=== PATIENT | female | born 1995 | race Caucasian/White ===

== ENCOUNTER → 2017-04-07 | Outpatient (CLI) | payer OTHER ==
[2017-04-07 18:21] LABS: BASO % 1.6 %; BASO ABS # 0.09 K/uL (0-0.2); COMPLETE YES; HEMATOCRIT 41.5 % (37-47); IG% 0.2 %; LYMPH % 42.1 %; LYMPH ABS # 2.39 K/uL (1.2-3.4); MEAN CELL VOLUME 85.9 fL (80-100); MEAN CORPUSCULAR HEMOGLOBIN 29.2 pg (25-34); MEAN PLATELET VOLUME 10.2 fL (7.4-10.4); MONO % 9.7 %; NEUT % 40.4 %; PLATELET COUNT 303 K/uL (130-400); RED BLOOD COUNT 4.83 M/uL (4.2-5.4); WHITE BLOOD COUNT 5.68 K/uL (4.8-10.8)
== END | disposition home or self-care (01) ==
LOC: C.LABMFLN 13:33
PROVIDERS: ATTEND Family Medicine
DX: R30.0 Dysuria (principal); K58.9 Irritable bowel syndrome, unspecified

== ENCOUNTER → 2017-05-13 | Outpatient (CLI) | payer OTHER | END | disposition home or self-care (01) | LOC: C.LABMFLN 15:22 | PROVIDERS: ATTEND Physician Assistant | DX: R19.7 Diarrhea, unspecified (principal) ==

== ENCOUNTER → 2017-05-14 | Outpatient (CLI) | payer OTHER ==
[2017-05-16 17:51] LABS: CRYPTOSPORIDIUM AG TC 37213 NOT DETECTED (NOT DETECTED); O&P GIARDIA AG NOT DETECTED (NOT DETECTED)
== END | disposition home or self-care (01) ==
LOC: C.LABMFLN 08:23
PROVIDERS: ATTEND Physician Assistant
DX: R19.7 Diarrhea, unspecified (principal); K92.1 Melena

== ENCOUNTER 2018-06-27 22:45 | Emergency (ER) | payer OTHER ==
[~2018-06-27] VITALS: Ht 175.3 cm; Wt 65.3 kg
[2018-06-27 22:48] VITALS: TEMP 36.7; Ht 175.3 cm; Wt 65.3 kg
[2018-06-27] MEDS ORDERED: SODIUM CHLORIDE 0.9% 1000ML 1,000 ML IV STA (23:00)
[2018-06-27] MEDS ORDERED: PROMETHAZINE HCL INJ 12.5 MG in SODIUM CHLORIDE 0.9% 50ML 50 ML IV STA (23:00)
[2018-06-27 23:33] LABS: BASO % 0.6 %; BASO ABS # 0.04 K/uL (0-0.2); EOS % 2.6 %; EOS ABS # 0.17 K/uL (0-0.5); HEMATOCRIT 44.4 % (37-47); HEMOGLOBIN 15.2 g/dL (12.0-16.0); IG# 0.01 K/uL (0.00-0.02); LYMPH % 40.3 %; LYMPH ABS # 2.67 K/uL (1.2-3.4); MEAN CELL VOLUME 87.7 fL (80-100); MEAN CORPUSCULAR HGB CONC 34.2 g/dl (32-36); MEAN PLATELET VOLUME 9.7 fL (7.4-10.4); MONO ABS # 0.73 K/uL (0.11-0.59); NEUT % 45.3 %; PLATELET COUNT 292 K/uL (130-400); RED CELL DISTRIBUTION WIDTH CV 13.1 % (11.5-14.5); RED CELL DISTRIBUTION WIDTH SD 41.7 fL (36.4-46.3); WHITE BLOOD COUNT 6.62 K/uL (4.8-10.8)
[2018-06-28 00:01] LABS: CALCIUM 8.1 mg/dl (8.5-10.1); CREATININE 0.97 mg/dl (0.60-1.20); POTASSIUM 3.5 mmol/L (3.5-5.1); TOTAL PROTEIN 7.9 gm/dl (6.4-8.2)
[2018-06-28] MEDS ORDERED: MONT1TAB3 PO (00:43)
[2018-06-28] MEDS ORDERED: CETI10TA84 PO (00:43)
[2018-06-28] MEDS ORDERED: BCPILLS PO (00:43)
[2018-06-28] MEDS ORDERED: VNTHFA/IN INH (00:44)
[2018-06-28] MEDS ORDERED: SERT25TA PO (00:44)
[2018-06-28] MEDS ORDERED: DICY10CA55 PO (01:49)
[2018-06-28] MEDS ORDERED: PROM12.57 PO (01:50)
--- NOTE | 2018-06-28 01:52 | EMERGENCY ROOM VISIT NOTE ---
History First contact with patient: 22:52 Chief Complaint: FLU LIKE SX Stated Complaint: DIARRHEA,NAUSEA,CHILLS,ACHES History of Present Illness The patient is a 22 year old female who presents to the Emergency Room with complaints of nausea and diarrhea for the past few days. She states the symptoms started 3-4 days ago. She has been having diarrhea and abdominal cramping which is worse after eating. She also reports body aches and feeling feverish, although she has not taken her temperature. She does report a history of IBS but does not currently see gastroenterology. She was started on a PPI by her primary care provider this week. She called them yesterday and they did give her a prescription for Zofran as well. She states that this made her mouth feel tingly and so she has not taken it. She rates her discomfort a 4 /10. She denies blood in her stools, fever/chills, abnormal vaginal discharge, or urinary symptoms. Review of Systems A complete 10 point review of systems was reviewed with the patient with pertinent positives and negatives as per history of present illness. All else were negative. Past Medical/Surgical History Medical Problems: (1) IBS (irritable bowel syndrome) Social History Smoking Status: Never Smoker Housing Status: lives with family Current/Historical Medications Scheduled Control Pills ( Control Pills), 1 TAB PO DAILY Cetirizine (Zyrtec), 10 MG PO DAILY Montelukast Sodium (Singulair), 10 MG PO DAILY Sertraline (Zoloft), 25 MG PO DAILY Scheduled PRN Albuterol Hfa (Ventolin Hfa), 2 PUFFS INH Q6H PRN for SOB/Wheezing Dicyclomine Hcl (Bentyl), 10 MG PO TID PRN for Pain Promethazine (Phenergan ), 1-2 TABS PO Q6H PRN for Nausea or Vomiting Physical Exam Vital Signs Date Time Temp Pulse Resp B/P (MAP) Pulse Ox O2 Delivery O2 Flow Rate FiO2 06/28/18 02:00 81 18 130/82 100 06/27/18 22:48 36.7 114 16 153/97 99 Room Air Physical Exam VITALS: Vitals are noted on the nurse's note and reviewed by myself. Vital signs stable. GENERAL: This is a 22-year-old female, in no acute distress, nondiaphoretic, well-developed well-nourished. SKIN: The skin was without rashes. EARS: External auditory canals clear, tympanic membranes pearly carbone without erythema or effusion bilaterally. EYES: Pupils equal round and reactive to light and accommodation. MOUTH: Mucous membranes moist. Tonsils are not enlarged. Pharynx without erythema or exudate. NECK: Supple without nuchal rigidity. No lymphadenopathy. HEART: Regular rate and rhythm without murmurs gallops or rubs. LUNGS: Clear to auscultation bilaterally without wheezes, rales or rhonchi. ABDOMEN: Positive bowel sounds x 4. Soft, nontender to palpation. No guarding or rebound tenderness. NEURO: Patient was alert and oriented to person place and time. Medical Decision & Procedures Laboratory Results 06/27/18 23:19 Red Blood Count 5.06, Mean Corpuscular Volume 87.7, Mean Corpuscular Hemoglobin 30.0, Mean Corpuscular Hemoglobin Concent 34.2, Mean Platelet Volume 9.7, Neutrophils (%) (Auto) 45.3, Lymphocytes (%) (Auto) 40.3, Monocytes (%) (Auto) 11.0, Eosinophils (%) (Auto) 2.6, Basophils (%) (Auto) 0.6, Neutrophils # (Auto ) 3.00, Lymphocytes # (Auto) 2.67, Monocytes # (Auto) 0.73, Eosinophils # (Auto ) 0.17, Basophils # (Auto) 0.04 06/27/18 23:19 Test 06/27/18 23:19 06/27/18 23:26 White Blood Count 6.62 K/uL (4.8-10.8) Red Blood Count 5.06 M/uL (4.2-5.4) Hemoglobin 15.2 g/dL (12.0-16.0) Hematocrit 44.4 % (37-47) Mean Corpuscular Volume 87.7 fL (80-100) Mean Corpuscular Hemoglobin 30.0 pg (25-34) Mean Corpuscular Hemoglobin Concent 34.2 g/dl (32-36) Platelet Count 292 K/uL (130-400) Mean Platelet Volume 9.7 fL (7.4-10.4) Neutrophils (%) (Auto) 45.3 % Lymphocytes (%) (Auto) 40.3 % Monocytes (%) (Auto) 11.0 % Eosinophils (%) (Auto) 2.6 % Basophils (%) (Auto) 0.6 % Neutrophils # (Auto) 3.00 K/uL (1.4-6.5) Lymphocytes # (Auto) 2.67 K/uL (1.2-3.4) Monocytes # (Auto) 0.73 K/uL (0.11-0.59) Eosinophils # (Auto) 0.17 K/uL (0-0.5) Basophils # (Auto) 0.04 K/uL (0-0.2) RDW Standard Deviation 41.7 fL (36.4-46.3) RDW Coefficient of Variation 13.1 % (11.5-14.5) Immature Granulocyte % (Auto) 0.2 % Immature Granulocyte # (Auto) 0.01 K/uL (0.00-0.02) Anion Gap 8.0 mmol/L (3-11) Est Creatinine Clear Calc Drug Dose 94.6 ml/min Estimated GFR () 96.8 Estimated GFR (Non- 83.5 BUN/Creatinine Ratio 12.1 (10-20) Calcium Level 8.1 mg/dl (8.5-10.1) Total Bilirubin 0.4 mg/dl (0.2-1) Aspartate Amino Transf (AST/SGOT) 14 U/L (15-37) Alanine Aminotransferase (ALT/SGPT) 28 U/L (12-78) Alkaline Phosphatase 38 U/L (45-117) Total Protein 7.9 gm/dl (6.4-8.2) Albumin 4.0 gm/dl (3.4-5.0) Globulin 3.9 gm/dl (2.5-4.0) Albumin/Globulin Ratio 1.0 (0.9-2) Lipase 124 U/L (73-393) Urine Color DK YELLOW Urine Appearance CLEAR (CLEAR) Urine pH 5.0 (4.5-7.5) Urine Specific [place] 1.030 (1.000-1.030) Urine Protein NEG (NEG) Urine Glucose (UA) NEG (NEG) Urine Ketones TRACE (NEG) Urine Occult Blood 1+ (NEG) Urine Nitrite NEG (NEG) Urine Bilirubin NEG (NEG) Urine Urobilinogen NEG (NEG) Urine Leukocyte Esterase SMALL (NEG) Urine WBC (Auto) 5-10 /hpf (0-5) Urine RBC (Auto) 0-4 /hpf (0-4) Urine Hyaline Casts (Auto) 5-10 /lpf (0-5) Urine Epithelial Cells (Auto) >30 /lpf (0-5) Urine Bacteria (Auto) 1+ (NEG) Urine Test NEG (NEG) Medications Administered Medications (Trade) Dose Ordered Sig/Domenico Route Start Time Stop Time Status Last Admin Dose Admin Sodium Chloride 1,000 ml @ 999 mls/hr Q1H1M STAT IV 06/27/18 23:00 06/28/18 00:00 DC 06/27/18 23:25 999 MLS/HR Promethazine HCl 12.5 mg/Sodium Chloride 50.5 ml @ 204 mls/hr NOW STAT IV 06/27/18 23:00 06/27/18 23:14 DC 06/27/18 23:25 204 MLS/HR Medical Decision Differential diagnosis includes IBS, IBD, infectious diarrhea, gastroenteritis, UTI, among others. The patient is a 22-year-old female who presents today complaining of abdominal cramping, diarrhea and nausea. Labs revealed no leukocytosis, anemia or concerning electrolyte abnormalities. Urinalysis was suggestive of contamination rather than infection, but will be sent for culture. Urine was negative. She was treated with IV fluids and Phenergan and felt much better. She will be given a prescription for Phenergan and Bentyl. Symptoms may be secondary to a flare of her IBS or possibly IBD or other source. She may benefit from gastroenterology consultation. Based on the patient's presentation and work up, I feel the patient is stable for outpatient treatment. The patient was educated to return to the emergency department for any worsening of their current condition or new/concerning symptoms. She will follow up with her PCP and possibly gastroenterology. Medication Reconcilliation Current Medication List: was personally reviewed by me Blood Pressure Screening Patient's blood pressure: Normal blood pressure Impression Primary Impression: Diarrhea Departure Information Dispostion Home / Self-Care Condition GOOD Prescriptions Promethazine (Phenergan ) 12.5 Mg Tab 1-2 TABS PO Q6H Y for Nausea or Vomiting, #16 TAB Prov: Kristy Howard ., YELENA 06/28/18 Dicyclomine Hcl (BENTYL) 10 Mg Cap 10 MG PO TID Y for Pain, #15 CAP Prov: Kristy Howard .YELENA 06/28/18 Referrals Blake Stephen M.D. (PCP) Patient Instructions My [facility] Additional Instructions You have been treated in the Emergency Department for your Abdominal Pain. Laboratory results and imaging studies have ruled out any emergent causes for your abdominal pain which would warrant admission or surgery. You have been prescribed Phenergan to be used for any nausea or vomiting. Take as prescribed. Bentyl as prescribed as needed for abdominal pain/cramping. For pain control, you can use the following [id number] medicines (if >12 yo): - Regular strength (325mg/tab) Tylenol (acetaminophen) 2 tabs every 4-6 hours as needed. Do not exceed 12 tablets in a 24 hour period. Avoid taking more than 4 grams (4000 mg) of Tylenol per day. This includes any other sources of acetaminophen you may take on a regular basis. - Regular strength (200 mg/tab) Advil (ibuprofen) 1-2 tabs every 4-6 hours as needed. Do not exceed a dose of 3200 mg per day. Drink plenty of water and stay well hydrated. As with any trip to the Emergency Department, you should follow-up with your Primary Care Provider from today's visit. You may also follow-up with the [facility] gastroenterology in [place] for evaluation of your abdominal pain. Return to the emergency department if your symptoms persist despite treatment plan outlined above or if the following symptoms occur: Worsening pain, fevers, blood in the stool, worsening vomiting or other new/concerning symptoms. Problem Qualifiers Primary Impression: Diarrhea Diarrhea type: unspecified type Qualified Codes: R19.7 - Diarrhea, unspecified
[2018-06-28 02:00] VITALS: BP 130/82; PULSE 81; O2SAT 100
--- NOTE | 2018-06-30 19:33 | Pharmacy Progress Note ---
ED Pharmacist Culture FollowUp Date of Service: Jun 30, 2018. Lactobacillus isolated from urine culture. Patient was seen for non-urinary complaint. Urinalysis with a significant amount of epithelial cells. Organism not usually cause of UTI. No intervention required. Case discussed with Dr. Ruvalcaba.
== END 2018-06-28 02:02 | disposition home or self-care (01) ==
LOC: C.EDB 22:47 → C.EDA 06-28 02:02
DX: R19.7 Diarrhea, unspecified (principal); K58.9 Irritable bowel syndrome, unspecified; Z79.3 Long term (current) use of hormonal contraceptives; Z79.899 Other long term (current) drug therapy